=== PATIENT | female | born 1955 | race Caucasian/White ===

== ENCOUNTER 2018-08-31 19:22 | Emergency (ER) | payer BC, OTHER ==
[~2018-08-31] VITALS: Ht 154.9 cm; Wt 75.7 kg
[2018-08-31 19:25] VITALS: BP 162/92
[2018-08-31 19:52] LABS: BASOPHILS % (AUTO) 0.3 % (0.0-2.0); EOSINOPHILS % (AUTO) 0.1 % (0.0-4.0); HEMATOCRIT 39.6 % (36-48); HEMOGLOBIN 13.3 g/dL (12.0-16.0); LYMPHOCYTES # (AUTO) 2.2 K/uL (2.5-16.5); LYMPHOCYTES % (AUTO) 18.7 % (20.5-51.1); MEAN CORPUSCULAR HEMOGLOBIN 31 pg (27-31); MEAN CORPUSCULAR HGB CONC 34 g/dL (33-37); MEAN CORPUSCULAR VOLUME 91.9 fL (80-94); MONOCYTES # (AUTO) 0.5 K/uL (0.8-1.0); MONOCYTES % (AUTO) 3.9 % (1.7-9.3); NEUTROPHILS # (AUTO) 9.2 K/uL (1.8-7.7); PLATELET COUNT (AUTO) 354 K/uL (140-450); RED BLOOD CELL COUNT(AUTO) 4.31 MIL/uL (4.20-5.40); RED CELL DISTRIBUTION WIDTH 11.6 % (11.6-13.7)
[2018-08-31] MEDS: DICYCLOMINE HCL LIQUID 20 MG, ALUMINUM HYD/MAG/SIMETHICONE 30 ML, LIDOCAINE VISCOUS 2% ... PO ONE ×3 (20:34)
[2018-08-31 20:47] LABS: APPEARANCE,URINE CLEAR (CLEAR); BILIRUBIN,URINE NEGATIVE (NEGATIVE); BLOOD, URINE NEGATIVE (NEGATIVE); COLOR,URINE YELLOW (YELLOW); LEUKOCYTE ESTERASE ,URINE TRACE (NEGATIVE); NITRITE, URINE NEGATIVE (NEGATIVE); RBC,URINE NONE SEEN /HPF (0-5); UGLUCOSE NEGATIVE (NEGATIVE)
[2018-08-31] MEDS: NACL 0.9% 1,000 ML IV ONE (20:47)
[2018-08-31 20:48] LABS: WBC,URINE 0-5 (RARE) /HPF (0-5)
[2018-08-31] MEDS: ONDANSETRON 4 MG/2 ML VIAL IVP ONE (20:48)
[2018-08-31] MEDS: KETOROLAC 30 MG/ML VIAL IVP ONE (20:48)
[2018-08-31 21:35] LABS: ALBUMIN 4.2 g/dL (3.4-5.0); CARBON DIOXIDE 24.7 mmol/L (21-32); CREATININE 0.8 mg/dL (0.6-1.3); POTASSIUM 3.7 mmol/L (3.5-5.1); TOTAL BILIRUBIN 0.3 mg/dL (0.0-1.0)
[2018-08-31] MEDS: MORPHINE SULFATE 4 MG/ML SYR IVP ONE (21:43)
[2018-08-31] MEDS: ACETAMINOPHEN EXTRA STRENGTH 500 MG TAB PO ONE (22:15)
[2018-08-31 22:36] VITALS: BP 143/83
== END 2018-08-31 22:32 | disposition home or self-care (01) ==
LOC: MED 19:22
DX: R07.89 Other chest pain (principal); R10.9 Unspecified abdominal pain; R11.0 Nausea; R51 Headache; F41.9 Anxiety disorder, unspecified; I10 Essential (primary) hypertension; R42 Dizziness and giddiness; R20.0 Anesthesia of skin
CPT/HCPCS: 36415; 71045; 80053; 81001; 83690; 83880; 84484; 85025; 93005; 96361; 96374; 96375; 99284; J1885; J2405; J7030; J2270